=== PATIENT | male | born 1955 | race Caucasian/White ===

== ENCOUNTER 2019-10-20 07:00 | Day surgery (SDC) | payer MEDICARE, BC, MEDICAID, SELFPAY ==
[2019-10-20] MEDS: Tropicam./Phenyleph. (1/2.5%) 5 ML BTL OD ×3 (07:25→07:37)
[2019-10-20 07:30] VITALS: BP 87/48; PULSE 88; RESP 16; TEMP 36; O2SAT 96
[2019-10-20] MEDS: Lidocaine 2% Jelly 6 ML SYR (08:21)
[2019-10-20] MEDS: Povidone-Iodine Ophth 30 ML BTL (08:21)
[2019-10-20] MEDS: Tetracaine 0.5% 4 ML BTL OD (08:21)
[2019-10-20] MEDS: Balanced Salt Soln.-PLUS 500 ML BAG (08:27)
[2019-10-20] MEDS: Duovisc Viscoelastic System EACH 1 EACH (08:27)
[2019-10-20] MEDS: Lidocaine 1% Pres-Free 5 ML VIAL (08:27)
[2019-10-20] MEDS: Trypan Blue 0.06% 0.5 ML SYR (08:27)
[2019-10-20] MEDS: Moxifloxacin-PF 1 MG/ML VIAL (08:50)
--- NOTE | 2019-10-20 08:58 | W.PM.DSUDISC ---
Discharge Plan Disposition Patient Disposition: HOME Condition: Good Discharge Details Attending Provider: Orlando Cote Primary Care Provider: Selene Mac Home Meds and New Rx's Prescriptions: No Action citalopram 10 mg Tablet 10 mg PO DAILY RF: 0 melatonin 3 mg Tablet 9 mg PO HS RF: 0 aspirin 81 mg Tablet,Delayed Release (Dr/Ec) 81 mg PO DAILY RF: 0 amitriptyline 50 mg Tablet 50 mg PO HS RF: 0 pantoprazole 40 mg Tablet,Delayed Release (Dr/Ec) 40 mg PO HS RF: 0 losartan 100 mg Tablet 100 mg PO DAILY RF: 0 finasteride 5 mg Tablet 5 mg PO HS RF: 0 Flovent 110 mcg/actuation Hfa Aerosol Inhaler 1 puff INHALATION BID RF: 0 rosuvastatin 10 mg Tablet 10 mg PO DAILY RF: 0 Lantus Solostar U-100 Insulin 100 unit/mL (3 mL) Insulin Pen 25 unit SUBCUT HS RF: 0 Humalog KwikPen Insulin 200 unit/mL (3 mL) Insulin Pen See Rx Instructions .ROUTE .COMPLEX RF: 0 hydroxyzine HCl 25 mg Tablet 25 mg PO PRN PRNRF: 0 Metamucil Packet 1 packet PO DAILY PRNRF: 0 tamsulosin 0.4 mg Capsule 0.4 mg PO DAILY RF: 0 baclofen 10 mg Tablet 10 mg PO TID RF: 0 nortriptyline 75 mg Capsule 75 mg PO HS RF: 0 oxycodone 5 mg Capsule 5 mg PO Q6H PRNRF: 0 albuterol 90 mcg/actuation Aerosol 90 mcg INHALATION Q4H PRNRF: 0 linaclotide 145 mcg Capsule 145 mcg PO QAM RF: 0 Discharge Instructions Stand Alone Forms: Post-op Topical Cataract, Press Ganey (DSU) Discharge Orders Discharge Orders: Discharge Order (Routine); Ordered 10/20/19 Ordered By: Orlando Cote DS: Diagnosis Discharge Diagnosis (1) Posterior subcapsular age-related cataract, right eye: Status: Resolved (2) Nuclear sclerotic cataract of right eye: Status: Resolved
--- NOTE | 2019-10-20 08:59 | ROE_ITS ---
Time of Service: 08:59 Operative Note Operative Note DATE OF PROCEDURE: 10/20/19 PRE-OP DIAGNOSIS: Dense nuclear/posterior subcapsular cataract, right eye; poor red reflex, right eye secondary to dense cataract; poorly dilating pupil, right eye secondary to Flomax treatment POST-OP DIAGNOSIS: same PROCEDURE: Cataract extraction using phacoemulsification with intraocular lens implant, right eye, with pupillary dilation using Malyugin Ring and capsular staining using Vision Blue SURGEON: Orlando Cote ANESTHESIA: MAC (with sub-tenon's local infiltration) ESTIMATED BLOOD LOSS: 0 PATHOLOGY: none sent COMPLICATIONS: None Patient was transported to: same day Patient's condition: stable Implants: Aurelio and Aurelio / [employer] Tecnis [id number] Indications: Progressive decreased vision due to cataract, right eye Findings: Procedure Description: CATARACT SURGERY OPERATIVE REPORT PREOPERATIVE DIAGNOSIS: 1. Dense nuclear/posterior subcapsular cataract, right eye 2. Poorly dilating pupil, right eye 3. Poor red reflex, right eye POSTOPERATIVE DIAGNOSIS: Same OPERATION: 1. Cataract extraction using phacoemulsification with posterior chamber intraocular lens implant, right eye. 2. Pupillary dilation and iris stabilization using Malyugin Ring 3. Capsular staining with VIsion Blue IOL: IOL Breastfeeding Program Coordinator/Model: Aurelio & Aurelio / FLAKITO Tecnis ZCB00 IOL Power: + 19.50 diopters IOL Serial Number: [id number] Optic Diameter: 6.0mm Haptic/Overall Diameter: 13.0mm PHACO INFO: Raymundo Amplify [employer]urion Vision System with OZil and Active Fluidics Cumulative Dispersed Energy (CDE): 16.77 seconds SURGEON: Orlando Cote MD, ANTONI ANESTHESIA: Monitored Anesthesia Care (MAC), with local sub-tenon's anesthetic infiltration COMPLICATIONS: None SPECIMENS: None INDICATIONS FOR PROCEDURE: The patient is a 64-year-old gentleman with history of progressive decreased vision in his right eye. He is noted to have a dense nuclear posterior subcapsular cataract in the right eye. Visual acuity left 2400. Patient and he wished to proceed PROCEDURE: The correct surgical eye was identified and marked as the right eye and the pupil was dilated in the preoperative area using mydriatics and cyclo plegics. The dilated pupil size was 4.5 mm. No sedation was administered. The patient was brought to the operating room where cardiopulmonary monitoring was instituted and surgical time-out was performed, confirming the correct operative eye and IOL power. Topical anesthesia was administered and ophthalmic povidone-iodine 5% was instilled into the conjunctival fornices. Lidocaine gel was applied to the cornea and the roderick-ocular area was prepped with Betadine 10% solution and draped in the usual sterile fashion for intraocular surgery, including an aperture drape. A Tegaderm transparent film dressing was cut in half and used to cover the lashes and lid margins. Care was taken to sequester the lashes and lid margins under the Tegaderm dressing. A lid speculum was placed between the lids of the operative eye and the Blade-James operating microscope was maneuvered into position. Lemuel scissors were then used to make a conjunctival buttonhole approximately 6mm posterior to the limbus in the inferonasal quadrant. Blunt dissection was carried out to expose bare sclera, and a blunt-tipped sub-tenon?s anesthesia cannula was introduced and passed posteriorly along the globe where non- preserved plain lidocaine was injected into posterior sub-Tenon?s space. A sideport knife was used to make a paracentesis port inferiortemporally. Intraocular phenylephrine/lidocaine was injected into the anterior chamber. Air was then injected into anterior chamber, followed by Vision Blue, which was painted over the anterior capsule and then irrigated out with BSS. The anterior chamber was then filled with Raymundo Viscoat. A 2.4mm keratome knife was used to create a half-thickness groove at the limbus and then to construct a three-plane near-clear corneal tunnel extending 2.0mm into clear cornea superiortemporally. A 7.0 mm Malyugin Ring was then inserted into the pupillary space and engaged with the Kuglen hook. A flap was raised on the anterior capsule and capsulorhexis forceps were used to complete a continuous curvilinear capsulorhexis of 5.0 mm. Balanced salt solution was then used to perform cortical cleaving hydrodissection and nuclear hydrodelineation until the lens could be freely rotated within the capsular bag. The lens nucleus was then disassembled and removed within the capsular bag and iris plane using phacoemulsification. Residual cortical material was removed using the 45-degree angled silicone I/A tip with 0.3mm port. The posterior capsule was carefully polished to remove as much residual lens epithelial cells as safely possible. The capsular bag was then inflated and the anterior chamber deepened with Raymundo Provisc. The lens implant described above was inserted into the capsular bag using the FLAKITO [place] Injector. A Kuglen hook was used to dial the IOL into position. The Malyugin Ring was removed in the reverse order of its insertion. Residual viscoelastic was then removed first from posterior to the IOL, then from the anterior chamber using the I/A handpiece. The lens implant was noted to center nicely within the capsular bag. The incisions were stromally hydrated, and the anterior chamber was reformed using BSS. Then 0.5cc of moxifloxacin 1.0mg/ml were injected into the capsular bag and anterior chamber. The incisions were checked with a Weck spear and found to be secure. Several drops of ophthalmic povidone-iodine 5% were then applied to the eye followed by two drops of Imprimis combination prednisoone/moxifloxacin/nepafenac solution. The drapes were removed and a clear plastic protective eye shield was placed over the eye. The patient was then returned to [facility] in stable condition.
[2019-10-20 09:39] VITALS: BP 103/68; PULSE 87; RESP 19; TEMP 35.9; O2SAT 98
== END 2019-10-20 10:00 | disposition home or self-care (01) ==
PROVIDERS: PCP Legal Medicine; Visit Provider Ophthalmology
PROC: (CPT 66982; principal; 2019-10-20 08:30)
DX: H25.041 Posterior subcapsular polar age-related cataract, right eye (principal); H25.11 Age-related nuclear cataract, right eye; H35.89 Other specified retinal disorders; T44.6X5A Adverse effect of alpha-adrenoreceptor antagonists, initial encounter; H57.09 Other anomalies of pupillary function
CPT/HCPCS: 66982; V2632

== ENCOUNTER 2019-11-03 10:50 | Day surgery (SDC) | payer MEDICARE, BC, MEDICAID, SELFPAY ==
[2019-11-03 11:05] VITALS: BP 132/72; PULSE 75; RESP 16; TEMP 35.9; O2SAT 94
[2019-11-03] MEDS: Tropicam./Phenyleph. (1/2.5%) 5 ML BTL OS ×3 (11:39→11:56)
[2019-11-03] MEDS: Tetracaine 0.5% 4 ML BTL OS (12:25)
[2019-11-03] MEDS: Duovisc Viscoelastic System EACH 1 EACH ×2 (12:34→12:57)
[2019-11-03] MEDS: Trypan Blue 0.06% 0.5 ML SYR (12:35)
[2019-11-03] MEDS: Moxifloxacin-PF 1 MG/ML VIAL (12:35)
[2019-11-03] MEDS: Balanced Salt Soln.-PLUS 500 ML BAG (12:36)
[2019-11-03] MEDS: Lidocaine 1% Pres-Free 5 ML VIAL (12:37)
[2019-11-03] MEDS: Lidocaine 2% Jelly 6 ML SYR (12:37)
[2019-11-03] MEDS: Povidone-Iodine Ophth 30 ML BTL (12:39)
--- NOTE | 2019-11-03 13:15 | W.PM.DSUDISC ---
Discharge Plan Disposition Patient Disposition: HOME Condition: Good Discharge Details Attending Provider: Orlando Cote Primary Care Provider: Selene Mac Home Meds and New Rx's Prescriptions: No Action citalopram 10 mg Tablet 10 mg PO DAILY RF: 0 melatonin 3 mg Tablet 9 mg PO HS RF: 0 aspirin 81 mg Tablet,Delayed Release (Dr/Ec) 81 mg PO DAILY RF: 0 amitriptyline 50 mg Tablet 50 mg PO HS RF: 0 pantoprazole 40 mg Tablet,Delayed Release (Dr/Ec) 40 mg PO HS RF: 0 losartan 100 mg Tablet 100 mg PO DAILY RF: 0 finasteride 5 mg Tablet 5 mg PO HS RF: 0 Flovent 110 mcg/actuation Hfa Aerosol Inhaler 1 puff INHALATION BID RF: 0 rosuvastatin 10 mg Tablet 10 mg PO DAILY RF: 0 Lantus Solostar U-100 Insulin 100 unit/mL (3 mL) Insulin Pen 25 unit SUBCUT HS RF: 0 Humalog KwikPen Insulin 200 unit/mL (3 mL) Insulin Pen See Rx Instructions .ROUTE .COMPLEX RF: 0 hydroxyzine HCl 25 mg Tablet 25 mg PO PRN PRNRF: 0 Metamucil Packet 1 packet PO DAILY PRNRF: 0 tamsulosin 0.4 mg Capsule 0.4 mg PO HS RF: 0 baclofen 10 mg Tablet 10 mg PO TID RF: 0 nortriptyline 75 mg Capsule 75 mg PO HS RF: 0 oxycodone 5 mg Capsule 5 mg PO Q6H PRNRF: 0 albuterol 90 mcg/actuation Aerosol 90 mcg INHALATION Q4H PRNRF: 0 linaclotide 145 mcg Capsule 145 mcg PO QAM RF: 0 Discharge Instructions Stand Alone Forms: Post-op Topical Cataract, Press Ganey (DSU) Discharge Orders Discharge Orders: Discharge Order (Routine); Ordered 11/03/19 Ordered By: Orlando Cote DS: Diagnosis Discharge Diagnosis (1) Posterior subcapsular age-related cataract of left eye: Status: Resolved (2) Nuclear sclerotic cataract of left eye: Status: Resolved
--- NOTE | 2019-11-03 13:17 | ROE_ITS ---
Date of service: 11/03/19 Time of Service: 13:17 Operative Note Operative Note DATE OF PROCEDURE: 11/03/19 PRE-OP DIAGNOSIS: Dense Nuclear/posterior subcapsular cataract, left eye; poorly dilating pupil, left eye; poor red reflex PROCEDURE: Cataract extraction using phacoemulsification with intraocular lens implant, left eye, with pupillary dilation using Malyugin Ring and capsular staining using Vision Blue SURGEON: Orlando Cote ANESTHESIA: MAC (with sub-tenon's local infiltration) ESTIMATED BLOOD LOSS: 0 PATHOLOGY: none sent COMPLICATIONS: None Patient was transported to: same day Patient's condition: stable Implants: Aurelio and Aurelio / [employer] Opt[employer] Tecnis [id number] Indications: Progressive decreased vision due to cataract, left eye Procedure Description: CATARACT SURGERY OPERATIVE REPORT PREOPERATIVE DIAGNOSIS: 1. Dense nuclear/posterior subcapsular cataract, left eye 2. Poorly dilating pupil, left eye 3. Poor red reflex, left eye POSTOPERATIVE DIAGNOSIS: Same OPERATION: 1. Cataract extraction using phacoemulsification with posterior chamber intraocular lens implant, left eye. 2. Pupillary dilation and iris stabilization using Malyugin Ring 3. Capsular staining with VIsion Blue IOL: IOL Forest Science Professor/Model: Aurelio & Aurelio / FLAKITO Tecnis ZCB00 IOL Power: + 20.0 diopters IOL Serial Number: [id number] Optic Diameter: 6.0mm Haptic/Overall Diameter: 13.0mm PHACO INFO: Raymundo [employer] Vision System with OZil and Active Fluidics Cumulative Dispersed Energy (CDE): 32.39 seconds SURGEON: Orlando Cote MD, ANTONI ANESTHESIA: Monitored Anesthesia Care (MAC), with local sub-tenon's anesthetic infiltration COMPLICATIONS: None SPECIMENS: None INDICATIONS FOR PROCEDURE: Patient is a 64-year-old gentleman with history of diminished visual acuity both eyes secondary to the development of bilateral cataract, left eye greater than right. He has already undergone cataract surgery in his right eye and is doing well postoperatively. Presents for cataract surgery left eye, which has a very dense nuclear/posterior subcapsular cataract PROCEDURE: The correct surgical eye was identified and marked as the left eye and the pupil was dilated in the preoperative area using mydriatics, cycloplegics, and NSAIDS (except in aspirin allergic patients). The dilated pupil size was 4.5 mm. No oral sedation was used. . The patient was brought to the operating room where cardiopulmonary monitoring was instituted and surgical time-out was performed, confirming the correct operative eye and IOL power. Topical anesthesia was administered and ophthalmic povidone-iodine 5% was instilled into the conjunctival fornices. Lidocaine gel was applied to the cornea and the roderick-ocular area was prepped with Betadine 10% solution and draped in the usual sterile fashion for intraocular surgery, including an aperture drape. A Tegaderm transparent film dressing was cut in half and used to cover the lashes and lid margins. Care was taken to sequester the lashes and lid margins under the Tegaderm dressing. A lid speculum was placed between the lids of the operative eye and the Blade-James operating microscope was maneuvered into position. Lemuel scissors were then used to make a conjunctival buttonhole approximately 6mm posterior to the limbus in the inferonasal quadrant. Blunt dissection was carried out to expose bare sclera, and a blunt-tipped sub-tenon?s anesthesia cannula was introduced and passed posteriorly along the globe where non- preserved plain lidocaine was injected into posterior sub-Tenon?s space. A sideport knife was used to make a paracentesis port superiorly/superiortemporally. Intraocular phenylephrine/lidocaine was injected into the anterior chamber. Air was then injected into anterior chamber, followed by Vision Blue, which was painted over the anterior capsule and then irrigated out with BSS. The anterior chamber was then filled with Viscoat. A 2.4mm keratome knife was used to create a half-thickness groove at the limbus and then to construct a three-plane near-clear corneal tunnel extending 2.0mm into clear cornea temporally. A 7.0mm Malyugin Ring was then inserted into the pupillary space and engaged with the Kuglen hook. A flap was raised on the anterior capsule and capsulorhexis forceps were used to complete a continuous curvilinear capsulorhexis of 5.0 mm. The capsule was extremely thin with loose zonules. Balanced salt solution was then used to perform cortical cleaving hydrodissection and nuclear hydrodelineation until the lens could be freely rotated within the capsular bag. The lens nucleus was then disassembled and removed within the capsular bag and iris plane using phacoemulsification. Nucleus splitters were used to crack the nucleus into halves after scultping a deep central groove. The remaining heminuclei were chopped and emulsified under additional Viscoat protection. Residual cortical material was removed using the 45-degree angled silicone I/A tip with 0.3mm port. The posterior capsule was carefully polished to remove as much residual lens epithelial cells as safely possible. The capsular bag was then inflated and the anterior chamber deepened with Provisc. . The lens implant described above was inserted into the capsular bag using the FLAKITO [place] Injector. A Kuglen hook was used to dial the IOL into position. The Malyugin Ring was removed in the reverse order of its insertion. Residual viscoelastic was then removed first from posterior to the IOL, then from the anterior chamber using the I/A handpiece. The lens implant was noted to center nicely within the capsular bag. The incisions were stromally hydrated, and the anterior chamber was reformed using BSS. Then 0.5cc of moxifloxacin 1.0mg/ml were injected into the capsular bag and anterior chamber. The incisions were checked with a Weck spear and found to be secure. Several drops of ophthalmic povidone-iodine 5% were then applied to the eye followed by two drops of Imprimis combination prednisolone/moxifloxacin/nepafenac solution. The drapes were removed and a clear plastic protective eye shield was placed over the eye. The patient was then returned to Same Day Surgery in stable condition.
== END 2019-11-03 13:43 | disposition home or self-care (01) ==
PROVIDERS: PCP Legal Medicine; Visit Provider Ophthalmology
PROC: (CPT 66982; principal; 2019-11-03 14:30)
DX: H25.042 Posterior subcapsular polar age-related cataract, left eye (principal); H57.03 Miosis; E11.9 Type 2 diabetes mellitus without complications; Z79.4 Long term (current) use of insulin; Z86.73 Personal history of transient ischemic attack (TIA), and cerebral infarction without residual deficits
CPT/HCPCS: 66982; V2632